=== PATIENT | male | born 1955 | race Caucasian/White ===

== ENCOUNTER → 2018-01-25 | Outpatient (CLI) | payer BC ==
[~2018-01-25] MED LIST: ACCUPRIL20 MG PO; IBU800 M1 PO; LIPITOR20 MG PO
== END | disposition home or self-care (01) ==
LOC: RESCLI 04:00
DX: Z13.1 Encounter for screening for diabetes mellitus (principal); Z13.220 Encounter for screening for lipoid disorders; I10 Essential (primary) hypertension; E78.5 Hyperlipidemia, unspecified; R53.83 Other fatigue; Z86.39 Personal history of other endocrine, nutritional and metabolic disease

== ENCOUNTER → 2018-11-11 | Outpatient (CLI) | payer BC | END | disposition home or self-care (01) | LOC: RESCLI 04:38 | DX: I10 Essential (primary) hypertension (principal); I25.10 Atherosclerotic heart disease of native coronary artery without angina pectoris; E78.5 Hyperlipidemia, unspecified; J01.90 Acute sinusitis, unspecified; F17.200 Nicotine dependence, unspecified, uncomplicated; Z79.899 Other long term (current) drug therapy ==

== ENCOUNTER → 2019-01-05 | Outpatient (CLI) | payer BC | END | disposition home or self-care (01) | LOC: RESCLI 13:41 | DX: Z00.00 Encounter for general adult medical examination without abnormal findings (principal); I10 Essential (primary) hypertension; E78.5 Hyperlipidemia, unspecified; I25.10 Atherosclerotic heart disease of native coronary artery without angina pectoris; R00.1 Bradycardia, unspecified; M54.2 Cervicalgia; E66.3 Overweight; R60.0 Localized edema; Z79.82 Long term (current) use of aspirin; Z79.899 Other long term (current) drug therapy; Z88.8 Allergy status to other drugs, medicaments and biological substances ==

== ENCOUNTER 2019-11-20 07:50 | Emergency (ER) | payer BC ==
[~2019-11-20] VITALS: Ht 187.9 cm; Wt 99.8 kg
[2019-11-20] MEDS ORDERED: KEFLEX500 M1 PO (08:25)
== END 2019-11-20 08:29 | disposition home or self-care (01) ==
LOC: ED 07:50
DX: L03.114 Cellulitis of left upper limb (principal); I10 Essential (primary) hypertension; Z79.899 Other long term (current) drug therapy; W45.8XXA Other foreign body or object entering through skin, initial encounter; Y93.89 Activity, other specified; Y92.89 Other specified places as the place of occurrence of the external cause; Y99.8 Other external cause status

== ENCOUNTER → 2020-06-23 | Outpatient (CLI) | payer BC ==
[~2020-06-23] MED LIST changes: +KEFLEX500 M1 PO
== END | disposition home or self-care (01) ==
LOC: LAB 19:54
DX: D64.9 Anemia, unspecified (principal)

== ENCOUNTER 2020-07-14 19:45 | Emergency (ER) | payer OTHER ==
[~2020-07-14] VITALS: Wt 97.5 kg
[2020-07-14] MEDS ORDERED: AMLODIPINE BESYL5 MG PO (20:11)
[2020-07-14] MEDS ORDERED: ATORVASTATIN CA20 M1 PO (20:11)
== END 2020-07-14 21:42 | disposition home or self-care (01) ==
LOC: ED 19:45
DX: S16.1XXA Strain of muscle, fascia and tendon at neck level, initial encounter (principal); S46.912A Strain of unspecified muscle, fascia and tendon at shoulder and upper arm level, left arm, initial encounter; I10 Essential (primary) hypertension; Z79.899 Other long term (current) drug therapy; V89.2XXA Person injured in unspecified motor-vehicle accident, traffic, initial encounter; Y93.89 Activity, other specified; Y92.89 Other specified places as the place of occurrence of the external cause; Y99.8 Other external cause status

== ENCOUNTER → 2020-07-26 | Outpatient (CLI) | payer OTHER, BC ==
[~2020-07-26] MED LIST changes: +AMLODIPINE BESYL5 MG PO; +ATORVASTATIN CA20 M1 PO
== END | disposition home or self-care (01) ==
LOC: RESCLI 09:44
PROVIDERS: ATTEND Family Medicine
DX: I10 Essential (primary) hypertension (principal); S46.912D Strain of unspecified muscle, fascia and tendon at shoulder and upper arm level, left arm, subsequent encounter; S16.1XXD Strain of muscle, fascia and tendon at neck level, subsequent encounter; N19 Unspecified kidney failure; M54.41 Lumbago with sciatica, right side; G89.29 Other chronic pain; E55.9 Vitamin D deficiency, unspecified; E78.5 Hyperlipidemia, unspecified; I25.10 Atherosclerotic heart disease of native coronary artery without angina pectoris; Z79.899 Other long term (current) drug therapy; Z95.828 Presence of other vascular implants and grafts; Z98.890 Other specified postprocedural states; X58.XXXD Exposure to other specified factors, subsequent encounter

== ENCOUNTER 2020-10-13 11:55 | Emergency (ER) | payer BC ==
[~2020-10-13] VITALS: Ht 187.9 cm; Wt 90.7 kg
[2020-10-13 12:58] LABS: BASO % 0.2 % (0.0-1.0); EOS % 0.2 % (1.0-4.0); HEMATOCRIT 47.5 % (42.0-52.0); LYMPH # 1.1 10*3/uL (1.3-4.4); LYMPH % 23.1 % (27.0-41.0); MEAN CELL VOLUME 85.3 fl (80.0-94.0); MEAN CORPUSCULAR HGB 28.9 pg (27.0-31.0); MEAN CORPUSCULAR HGB CONC 33.9 g/dl (33.0-37.0); MEAN PLATELET VOLUME 10.2 fl (9.6-12.3); MONO # 0.6 10*3/uL (0.1-1.0); MONO % 12.1 % (3.0-9.0); NEUT # 2.9 10*3/uL (2.3-7.9); NEUT % 64.2 % (47.0-73.0); PLATELET COUNT AUTOMATED 154 10*3/uL (130-400); RED BLOOD COUNT 5.57 10*6/uL (4.50-5.90); RED CELL DISTRI WIDTH 12.5 % (0-14.5); WHITE BLOOD COUNT 4.6 10*3/uL (4.8-10.8)
[2020-10-13 13:15] LABS: ALBUMIN 3.4 gm/dl (3.1-4.5); ALKALINE PHOSPHATASE 71 U/L (45-117); BUN 18 mg/dl (7-24); CHLORIDE 106 mmol/L (98-107); CREATININE 1.14 mg/dL (0.70-1.30); POTASSIUM 5.1 mmol/L (3.5-5.1); SGOT/AST 17 IU/L (3-35); SGPT/ALT 18 U/L (12-78); SODIUM 138 mmol/L (136-145); TOTAL PROTEIN 7.2 gm/dL (6.4-8.2)
[2020-10-13 13:20] LABS: TROPONIN I < 0.015 ng/ml (<0.045)
[2020-10-13] MEDS ORDERED: TESSALON PERLE100 MG PO ×2 (13:39)
[2020-10-14] MEDS ORDERED: ASPIRIN CHEWABL81 MG PO (17:34)
== END 2020-10-13 14:18 | disposition home or self-care (01) ==
LOC: ED 11:55
PROVIDERS: Emergency Medicine
DX: U07.1 COVID-19 (principal); J12.89 Other viral pneumonia; Z79.899 Other long term (current) drug therapy

== ENCOUNTER 2020-10-14 13:04 | Inpatient (IN) | payer BC ==
[~2020-10-14] VITALS: Ht 188 cm; Wt 95.3 kg
[~2020-10-14 13:04] MED LIST changes: +TESSALON PERLE100 MG PO
[2020-10-14 13:10] VITALS: BP 142/92
[2020-10-14 13:45] LABS: BASO % 0.4 % (0.0-1.0); EOS % 0.2 % (1.0-4.0); HEMATOCRIT 46.5 % (42.0-52.0); LYMPH # 1.1 10*3/uL (1.3-4.4); LYMPH % 22.3 % (27.0-41.0); MEAN CELL VOLUME 85.8 fl (80.0-94.0); MEAN CORPUSCULAR HGB CONC 33.8 g/dl (33.0-37.0); MEAN PLATELET VOLUME 10.4 fl (9.6-12.3); MONO # 0.5 10*3/uL (0.1-1.0); MONO % 10.7 % (3.0-9.0); NEUT # 3.1 10*3/uL (2.3-7.9); PLATELET COUNT AUTOMATED 146 10*3/uL (130-400); RED BLOOD COUNT 5.42 10*6/uL (4.50-5.90); RED CELL DISTRI WIDTH 12.5 % (0-14.5); WHITE BLOOD COUNT 4.8 10*3/uL (4.8-10.8)
[2020-10-14 14:01] LABS: ALBUMIN 3.2 gm/dl (3.1-4.5); ALKALINE PHOSPHATASE 70 U/L (45-117); BUN 18 mg/dl (7-24); CHLORIDE 104 mmol/L (98-107); CREATININE 1.19 mg/dL (0.70-1.30); LIPASE 165 U/L (73-393); SGOT/AST 14 IU/L (3-35); SGPT/ALT 16 U/L (12-78); SODIUM 135 mmol/L (136-145); TOTAL PROTEIN 7.1 gm/dL (6.4-8.2)
[2020-10-14 14:19] LABS: TROPONIN I < 0.015 ng/ml (<0.045)
[2020-10-14 14:29] LABS: ACT PARTIAL THROMBO TIME 38.4 SECONDS (20.0-32.1)
[2020-10-14 15:20] VITALS: BP 134/90
[2020-10-14 16:00] VITALS: BP 140/78
--- NOTE | 2020-10-14 16:07 | NUR ---
DR HOLLAND CONSULTED. T.O. FOR ABG THEN CALL BACK.
[2020-10-14 16:46] LABS: ABG BASE EXCESS 0.6 mmol/L (-2.0-2.0); ARTERIAL BLOOD GAS PH 7.444 (7.35-7.45)
[2020-10-14 16:50] VITALS: BP 140/78
--- NOTE | 2020-10-14 16:50 | NUR ---
A 65, admitted to , under the services of CARLTON Stein DO with a diagnosis of covid-19. Chief complaint is SHORTNESS OF BREATH, DYPSNEA WITH MINIMAL EXERTION, HYPOXIC. Patient arrived via bed from ER. Monitor applied. Initial assessment completed. Vital signs taken and recorded. CARLTON STEIN DO notified of admission to the unit. Orders received. See assessment for past medical history, medications and allergies. Patient and/or family oriented to unit. [facility] visitation policy reviewed. Clothing/patient valuable form completed. DARVIN MILLER
[2020-10-14] MEDS ORDERED: ASPIRIN CHEWABL81 MG PO (17:34)
--- NOTE | 2020-10-14 19:45 | NUR ---
Pt taken off BiPap and placed on 6L NC. ABG sent
[2020-10-14 19:57] LABS: ABG BASE EXCESS 0.9 mmol/L (-2.0-2.0); ARTERIAL BLOOD GAS PH 7.491 (7.35-7.45)
[2020-10-14 20:00] VITALS: BP 117/75
--- NOTE | 2020-10-14 20:45 | NUR ---
called with ABG results. No changes. Encourage pt to wear BiPap all night. ABG in the AM.
[2020-10-15] VITALS: BP 107/60
--- NOTE | 2020-10-15 00:25 | NUR ---
RESTING IN BED. RESP-EASY AND REGUALR. BIPAP IN USE. CALL LIGHT IN REACH. SEE SHIFT ASSESSMENT.
--- NOTE | 2020-10-15 04:00 | NUR ---
PT SLEEPING IN BED. RESP-EASY AND REGULAR. BIPAP IN USE. CALL LIGHT IN REACH.
[2020-10-15 06:47] LABS: HEMATOCRIT 45.5 % (42.0-52.0); LYMPH # 0.8 10*3/uL (1.3-4.4); LYMPH % 25.8 % (27.0-41.0); MEAN CELL VOLUME 86.3 fl (80.0-94.0); MEAN CORPUSCULAR HGB 28.8 pg (27.0-31.0); MEAN CORPUSCULAR HGB CONC 33.4 g/dl (33.0-37.0); MEAN PLATELET VOLUME 10.7 fl (9.6-12.3); MONO # 0.3 10*3/uL (0.1-1.0); NEUT # 2.1 10*3/uL (2.3-7.9); NEUT % 65.9 % (47.0-73.0); PLATELET COUNT AUTOMATED 165 10*3/uL (130-400); RED BLOOD COUNT 5.27 10*6/uL (4.50-5.90); RED CELL DISTRI WIDTH 12.3 % (0-14.5); WHITE BLOOD COUNT 3.1 10*3/uL (4.8-10.8)
[2020-10-15 07:26] LABS: BUN 17 mg/dl (7-24); CHLORIDE 106 mmol/L (98-107); SODIUM 138 mmol/L (136-145)
[2020-10-15 07:29] LABS: ACT PARTIAL THROMBO TIME 38.4 SECONDS (20.0-32.1)
[2020-10-15 07:42] LABS: ALBUMIN 2.9 gm/dl (3.1-4.5); ALKALINE PHOSPHATASE 67 U/L (45-117); CHOLESTEROL 127 mg/dL (<200); CREATININE 0.95 mg/dL (0.70-1.30); FREE T4 1.11 ng/dl (0.76-1.46); HDL CHOLESTEROL 39 mg/dl (40-60); LDH 175 U/L (87-241); LDL CHOLESTEROL 74 mg/dL (9-159); SGOT/AST 14 IU/L (3-35); SGPT/ALT 13 U/L (12-78); THYROID STIM HORMONE (HS) 0.262 uIU/ml (0.358-4.75); TOTAL PROTEIN 7.2 gm/dL (6.4-8.2); TRIGLYCERIDES 68 mg/dl (<150); VLDL CHOLESTEROL 14 mg/dL (6-40)
[2020-10-15 07:51] LABS: FERRITIN 291.4 ng/mL (22.0-322.0); VITAMIN D, 25-HYDROXY 26.9 ng/mL (30-100)
[2020-10-15 08:00] VITALS: BP 132/70
[2020-10-15 08:15] LABS: ABG BASE EXCESS 0.5 mmol/L (-2.0-2.0); ARTERIAL BLOOD GAS PH 7.477 (7.35-7.45)
--- NOTE | 2020-10-15 09:00 | NUR ---
Software Asset Management Analyst in to talk to patient. Patient states lives at home with . There are no steps in the home. Physician: resident [facility] Pharmacy: [facility] services: none Patient's level of ADLs: INDEPENDENT Patient has working utilities: all working DME: none Follow-up physician's appointment after d/c: will be made by hospitalist nurse director upon discharge Does patient want to access PORTAL?: no Discharge plan discussed with patient by phone, he states he lives at home with his , he is independent in adls and ambulation, works and drives, he states he will return home when discharged and at this time denies any home needs, patient is wearing 4l of oxygen and intermittent bipap. no home oxygen or bipap, case management will follow. SERENA DIAZ
--- NOTE | 2020-10-15 09:00 | NUR ---
PT AWAKE/ALERT/ORIENTED X3. LUNGS DIMINISHED T/O. PATIENT STATES THAT HE FEELS A LOT BETTER TODAY THAN YESTERDAY. STATES COUGH HAS IMPROVED, DENIES N/V/D. HE IS DOWN TO 4L NC, POX 100%. DAUGHTER PRESENT IN ROOM, CALL LIGHT IN REACH.
--- NOTE | 2020-10-15 09:16 | NUR ---
SPEECH PATHOLOGY Nursing screen complete. No indication for ST evaluation per nsg notes. This department available for evaluation if/when medically necessary. Reba Victoria M.A. [employer] MARKER
[2020-10-15 12:00] VITALS: BP 123/79
--- NOTE | 2020-10-15 13:00 | NUR ---
PATIENT PUT BACK ON BIPAP PER REQUEST AT THIS TIME. PATIENT IS TOLERATING IT WELL. CALL LIGHT WITHIN REACH.
[2020-10-15 16:00] VITALS: BP 125/75
[2020-10-15 20:00] VITALS: BP 129/79
--- NOTE | 2020-10-15 20:00 | NUR ---
PT RESTING IN BED. RESP-EASY AND REGULAR. OXYGEN IN USE. NO C/O AT THIS TIME. CALL LIGHT IN REACH.
--- NOTE | 2020-10-15 23:23 | NUR ---
Pt placed on BiPap 14/10 and FiO2 25%. Alarms on and auidble.
[2020-10-16] VITALS: BP 119/73
--- NOTE | 2020-10-16 00:30 | NUR ---
SLEEPING, AWAKENS EASILY. RESPIRATIONS EASY. LUNGS DIMINISHED, CLEAR. PULSE OX 100% ON BI-PAP. DENIES SOB. CALL LIGHT WITHIN REACH. NO VOICED COMPLAINTS
--- NOTE | 2020-10-16 04:57 | NUR ---
24 HR chart check completed.
--- NOTE | 2020-10-16 06:00 | NUR ---
SLEPT THROUGHOUT NIGHT WITH NO DISTRESS NOTED. RESPIRATIONS EASY. BI-PAP IN USE. CALL LIGHT WITHIN REACH. NO VOICED COMPLAINTS THIS SHIFT
[2020-10-16 07:07] LABS: BASO % 0.1 % (0.0-1.0); HEMATOCRIT 44.9 % (42.0-52.0); LYMPH % 10.3 % (27.0-41.0); MEAN CELL VOLUME 86.8 fl (80.0-94.0); MEAN CORPUSCULAR HGB CONC 33.4 g/dl (33.0-37.0); MEAN PLATELET VOLUME 10.9 fl (9.6-12.3); MONO # 0.6 10*3/uL (0.1-1.0); MONO % 6.3 % (3.0-9.0); PLATELET COUNT AUTOMATED 193 10*3/uL (130-400); RED BLOOD COUNT 5.17 10*6/uL (4.50-5.90); RED CELL DISTRI WIDTH 12.3 % (0-14.5); WHITE BLOOD COUNT 9.6 10*3/uL (4.8-10.8)
[2020-10-16 07:32] LABS: BUN 22 mg/dl (7-24); CHLORIDE 108 mmol/L (98-107); CREATININE 0.97 mg/dL (0.70-1.30); LDH 193 U/L (87-241); POTASSIUM 5.3 mmol/L (3.5-5.1); SGOT/AST 14 IU/L (3-35); SGPT/ALT 13 U/L (12-78); SODIUM 141 mmol/L (136-145); TOTAL PROTEIN 6.8 gm/dL (6.4-8.2)
[2020-10-16 07:35] LABS: ALKALINE PHOSPHATASE 63 U/L (45-117); CPK 42 U/L (39-308)
[2020-10-16 08:00] VITALS: BP 104/54
--- NOTE | 2020-10-16 09:00 | NUR ---
case management talks with patient, he would like to return home when discharged, patient remails on 4l of oxygen and intermittent bipap. no home oxygen, patient will need assessed for home oxygen prior to discharge . case management will follow
--- NOTE | 2020-10-16 11:00 | NUR ---
PATIENT STATES HE IS FEELING MUCH BETTER TODAY. DOWN TO 3L NC WHEN ON IT. ON BIPAP AT THIS TIME, TOLERATING IT WELL. NO NEEDS VOICED AT THIS TIME. CALL LIGHT WITHIN REACH.
[2020-10-16 12:00] VITALS: BP 110/60
[2020-10-16 16:00] VITALS: BP 122/64
[2020-10-16 20:00] VITALS: BP 124/55
--- NOTE | 2020-10-16 22:05 | NUR ---
PATIENT RESTING IN BED. VOICES NO COMPAINTS/NEEDS. 2L NC IN PLACE. VSS. NO SIGNS OF DISTRESS. BED IN LOWEST POSITION,CALL LIGHT WITHIN REACH. WILL CONTINUE TO MONITOR.
[2020-10-17] VITALS: BP 122/83
--- NOTE | 2020-10-17 05:00 | NUR ---
PATIENT SLEEPING, NO SIGNS OF DISTRESS. WILL CONTINUE TO MONITOR.
--- NOTE | 2020-10-17 05:36 | NUR ---
PATIENT FOUND OFF BIPAP. 2L IN USE
[2020-10-17 06:45] LABS: BASO % 0.2 % (0.0-1.0); LYMPH # 1.1 10*3/uL (1.3-4.4); LYMPH % 18.1 % (27.0-41.0); MEAN CELL VOLUME 86.8 fl (80.0-94.0); MEAN CORPUSCULAR HGB 28.3 pg (27.0-31.0); MEAN CORPUSCULAR HGB CONC 32.6 g/dl (33.0-37.0); MEAN PLATELET VOLUME 10.6 fl (9.6-12.3); MONO # 0.5 10*3/uL (0.1-1.0); MONO % 8.5 % (3.0-9.0); NEUT # 4.3 10*3/uL (2.3-7.9); PLATELET COUNT AUTOMATED 210 10*3/uL (130-400); RED BLOOD COUNT 4.84 10*6/uL (4.50-5.90); RED CELL DISTRI WIDTH 12.2 % (0-14.5); WHITE BLOOD COUNT 5.9 10*3/uL (4.8-10.8)
[2020-10-17 07:10] LABS: CHLORIDE 107 mmol/L (98-107); POTASSIUM 4.5 mmol/L (3.5-5.1); SODIUM 140 mmol/L (136-145)
[2020-10-17 07:18] LABS: ALBUMIN 2.8 gm/dl (3.1-4.5); ALKALINE PHOSPHATASE 65 U/L (45-117); BUN 18 mg/dl (7-24); CPK 41 U/L (39-308); CREATININE 0.91 mg/dL (0.70-1.30); LDH 213 U/L (87-241); SGOT/AST 12 IU/L (3-35); SGPT/ALT 13 U/L (12-78); TOTAL PROTEIN 6.3 gm/dL (6.4-8.2)
[2020-10-17 08:00] VITALS: BP 117/67
--- NOTE | 2020-10-17 11:58 | NUR ---
case management talked with patient via phone, discussed with him home health services and explained what services they provide. he declined any home health, stated his daughter is a nurse and will visit him daily. also discussed with him home oxygen and he stated he received home oxygen from [facility] with portable tanks prior to coming into the hospital. case management will follow for any other home needs
[2020-10-17 12:00] VITALS: BP 118/62
[2020-10-17 16:00] VITALS: BP 111/67
--- NOTE | 2020-10-17 16:20 | NUR ---
PATIENT RESTING COMFORTABLE ON BIPAP @ 25% FiO2. DENIES ANY NEEDS AT THIS TIME. CALL LIGHT IS WITHIN REACH.
[2020-10-17 20:00] VITALS: BP 132/79
--- NOTE | 2020-10-17 20:30 | NUR ---
Pt placed on BiPap /10. FiO2 25%. Alarms on and auidible.
--- NOTE | 2020-10-17 21:28 | NUR ---
PATIENT RESTING IN BED. NO SIGNS OF DISTRESS. REQUESTING A SLEEPING PILL AND TESSALON PERLE. MEDICATED WITH BOTH AT THIS TIME. VOICES NO OTHER COMPLAINTS/NEEDS. RESPIRATIONS EASY, NON LABORED. VSS. PATIENT WEARING BIPAP. 25%. BED IN LOWEST POSITION,CALL LIGHT WITHIN REACH. WILL CONTINUE TO MONITOR.
[2020-10-18] VITALS: BP 114/68
--- NOTE | 2020-10-18 04:55 | NUR ---
PATIENT SLEEPING. NO SIGNS OF DISTRESS. BIPAP ON. CALL LIGHT WITHIN REACH. WILL CONTINUE TO MONITOR.
[2020-10-18 06:43] LABS: BASO % 0.1 % (0.0-1.0); HEMATOCRIT 41.8 % (42.0-52.0); LYMPH # 1.3 10*3/uL (1.3-4.4); LYMPH % 19.6 % (27.0-41.0); MEAN CELL VOLUME 88.2 fl (80.0-94.0); MEAN CORPUSCULAR HGB 28.9 pg (27.0-31.0); MEAN CORPUSCULAR HGB CONC 32.8 g/dl (33.0-37.0); MEAN PLATELET VOLUME 10.5 fl (9.6-12.3); MONO # 0.7 10*3/uL (0.1-1.0); MONO % 10.4 % (3.0-9.0); NEUT # 4.6 10*3/uL (2.3-7.9); NEUT % 69.2 % (47.0-73.0); PLATELET COUNT AUTOMATED 238 10*3/uL (130-400); RED BLOOD COUNT 4.74 10*6/uL (4.50-5.90); RED CELL DISTRI WIDTH 12.2 % (0-14.5); WHITE BLOOD COUNT 6.7 10*3/uL (4.8-10.8)
[2020-10-18 07:00] LABS: ALBUMIN 2.8 gm/dl (3.1-4.5); BUN 22 mg/dl (7-24); CHLORIDE 107 mmol/L (98-107); LDH 137 U/L (87-241); POTASSIUM 4.4 mmol/L (3.5-5.1); SGOT/AST 16 IU/L (3-35); SGPT/ALT 21 U/L (12-78); SODIUM 142 mmol/L (136-145); TOTAL PROTEIN 5.7 gm/dL (6.4-8.2)
[2020-10-18 07:01] LABS: ALKALINE PHOSPHATASE 62 U/L (45-117)
[2020-10-18 07:13] LABS: ABG BASE EXCESS 1.3 mmol/L (-2.0-2.0); ARTERIAL BLOOD GAS PH 7.431 (7.35-7.45)
[2020-10-18 07:13] LABS: CPK 27 U/L (39-308)
[2020-10-18 08:00] VITALS: BP 124/75
[2020-10-18] MEDS ORDERED: DECADRON6 M1 PO (11:45)
[2020-10-18] MEDS ORDERED: VITAMIN D350 MCG PO (11:46)
--- NOTE | 2020-10-18 12:17 | NUR ---
Discharge instructions reviewed with patient/family. Patient receptive and verbalizes understanding. Follow-up care arranged. Written instructions given to patient/family. ALDO THOMAS
== END 2020-10-18 12:17 | disposition home or self-care (01) | DRG 177 ==
LOC: ED 13:04 → EDHOLD 14:52 → 4E 14:52 → EDHOLD 14:53 → 4E 15:21
PROVIDERS: Emergency Medicine; Hospitalist; Internal Medicine Critical Care Medicine; ADMIT Family Medicine; ATTEND Family Medicine
PROC: 5A09357 Assistance with Respiratory Ventilation, Less than 24 Consecutive Hours, Continuous Positive Airway Pressure (ICD-10-PCS; principal; 2020-10-14)
PROC: 5A09357 Assistance with Respiratory Ventilation, Less than 24 Consecutive Hours, Continuous Positive Airway Pressure (ICD-10-PCS; 2020-10-15)
PROC: 5A09357 Assistance with Respiratory Ventilation, Less than 24 Consecutive Hours, Continuous Positive Airway Pressure (ICD-10-PCS; 2020-10-16)
PROC: 5A09357 Assistance with Respiratory Ventilation, Less than 24 Consecutive Hours, Continuous Positive Airway Pressure (ICD-10-PCS; 2020-10-17)
PROC: 5A09357 Assistance with Respiratory Ventilation, Less than 24 Consecutive Hours, Continuous Positive Airway Pressure (ICD-10-PCS; 2020-10-18)
DX: U07.1 COVID-19 (principal); J12.89 Other viral pneumonia; J96.01 Acute respiratory failure with hypoxia; E87.1 Hypo-osmolality and hyponatremia; D68.59 Other primary thrombophilia; R00.1 Bradycardia, unspecified; I25.10 Atherosclerotic heart disease of native coronary artery without angina pectoris; I10 Essential (primary) hypertension; R79.89 Other specified abnormal findings of blood chemistry; R79.82 Elevated C-reactive protein (CRP); E78.5 Hyperlipidemia, unspecified; Z96.641 Presence of right artificial hip joint; Z82.49 Family history of ischemic heart disease and other diseases of the circulatory system; Z79.899 Other long term (current) drug therapy

== ENCOUNTER → 2020-11-08 | Outpatient (CLI) | payer BC ==
[~2020-11-08] MED LIST changes: +ASPIRIN CHEWABL81 MG PO; +DECADRON6 M1 PO; +VITAMIN D350 MCG PO
== END | disposition home or self-care (01) ==
LOC: RESCLI 00:21
PROVIDERS: ATTEND Family Medicine
DX: M25.512 Pain in left shoulder (principal); I10 Essential (primary) hypertension; E78.5 Hyperlipidemia, unspecified; I25.10 Atherosclerotic heart disease of native coronary artery without angina pectoris; S46.912D Strain of unspecified muscle, fascia and tendon at shoulder and upper arm level, left arm, subsequent encounter; E07.81 Sick-euthyroid syndrome; E55.9 Vitamin D deficiency, unspecified; E87.6 Hypokalemia; Z23 Encounter for immunization; Z79.82 Long term (current) use of aspirin; X58.XXXD Exposure to other specified factors, subsequent encounter

== ENCOUNTER → 2020-12-02 | Outpatient (CLI) | payer BC | END | disposition home or self-care (01) | LOC: MRI 01:31 | PROVIDERS: ATTEND Internal Medicine Nephrology | DX: S46.912A Strain of unspecified muscle, fascia and tendon at shoulder and upper arm level, left arm, initial encounter (principal); M77.8 Other enthesopathies, not elsewhere classified; M19.012 Primary osteoarthritis, left shoulder; M75.52 Bursitis of left shoulder; M25.812 Other specified joint disorders, left shoulder; V89.2XXA Person injured in unspecified motor-vehicle accident, traffic, initial encounter; Y93.89 Activity, other specified; Y92.89 Other specified places as the place of occurrence of the external cause; Y99.8 Other external cause status ==

== ENCOUNTER → 2021-01-30 | Outpatient (CLI) | payer BC | END | disposition home or self-care (01) | LOC: RAD 11:57 | PROVIDERS: ATTEND Internal Medicine | DX: R06.00 Dyspnea, unspecified (principal); Z86.16 Personal history of COVID-19 ==

== ENCOUNTER → 2023-01-14 | Outpatient (CLI) | payer BC ==
[~2023-01-14] MED LIST changes: +AMITRIPTYLINE10 MG PO; +LISINOPRIL20 MG PO; +PROTONIX40 MG PO
== END | disposition home or self-care (01) ==
LOC: CARD 00:55
PROVIDERS: ATTEND Internal Medicine Cardiovascular Disease
DX: I49.3 Ventricular premature depolarization (principal); I49.1 Atrial premature depolarization

== ENCOUNTER → 2023-05-07 | Outpatient (CLI) | payer BC | END | disposition home or self-care (01) | LOC: US 13:30 | PROVIDERS: ATTEND Physician Assistant | DX: I65.23 Occlusion and stenosis of bilateral carotid arteries (principal); I10 Essential (primary) hypertension ==

== ENCOUNTER → 2023-10-28 | Outpatient (CLI) | payer BC | END | disposition home or self-care (01) | LOC: RAD 03:40 | PROVIDERS: ATTEND Nurse Practitioner Family | DX: R09.89 Other specified symptoms and signs involving the circulatory and respiratory systems (principal); J02.9 Acute pharyngitis, unspecified ==

== ENCOUNTER → 2023-12-14 | Outpatient (CLI) | payer BC | END | disposition home or self-care (01) | LOC: US 01:22 | PROVIDERS: ATTEND Nurse Practitioner Family | DX: K80.20 Calculus of gallbladder without cholecystitis without obstruction (principal); R10.10 Upper abdominal pain, unspecified; R74.8 Abnormal levels of other serum enzymes ==

== ENCOUNTER → 2024-12-04 | Outpatient (CLI) | payer BC | END | disposition home or self-care (01) | LOC: ORTHO 02:48 | PROVIDERS: ATTEND Orthopaedic Surgery | DX: M79.89 Other specified soft tissue disorders (principal); M25.571 Pain in right ankle and joints of right foot ==

== ENCOUNTER 2024-12-22 12:39 | Emergency (ER) | payer OTHER, BC ==
[~2024-12-22] VITALS: Ht 187.9 cm; Wt 104.3 kg
[2024-12-22] MEDS ORDERED: IBUPROFEN 800 MG TAB PO ONE (13:00)
[2024-12-22] MEDS ORDERED: PERCOCET 5-3251 EACH PO (13:29)
== END 2024-12-22 13:45 | disposition home or self-care (01) ==
LOC: ED 12:39
DX: S72.001A Fracture of unspecified part of neck of right femur, initial encounter for closed fracture (principal); Z79.899 Other long term (current) drug therapy; Z96.641 Presence of right artificial hip joint; W00.0XXA Fall on same level due to ice and snow, initial encounter; Y93.89 Activity, other specified; Y92.89 Other specified places as the place of occurrence of the external cause; Y99.0 Civilian activity done for income or pay

== ENCOUNTER → 2024-12-29 | Outpatient (CLI) | payer BC ==
[~2024-12-29] MED LIST changes: +PERCOCET 5-3251 EACH PO
== END | disposition home or self-care (01) ==
LOC: ORTHO 00:19
PROVIDERS: ATTEND Orthopaedic Surgery
DX: S72.114D Nondisplaced fracture of greater trochanter of right femur, subsequent encounter for closed fracture with routine healing (principal); M97.01XD Periprosthetic fracture around internal prosthetic right hip joint, subsequent encounter; X58.XXXD Exposure to other specified factors, subsequent encounter

== ENCOUNTER → 2025-01-12 | Outpatient (CLI) | payer BC | END | disposition home or self-care (01) | LOC: ORTHO 01:24 | PROVIDERS: ATTEND Orthopaedic Surgery | DX: S72.114D Nondisplaced fracture of greater trochanter of right femur, subsequent encounter for closed fracture with routine healing (principal); M97.01XD Periprosthetic fracture around internal prosthetic right hip joint, subsequent encounter; Z96.641 Presence of right artificial hip joint; X58.XXXD Exposure to other specified factors, subsequent encounter ==

== ENCOUNTER → 2025-01-31 | Outpatient (CLI) | payer BC | END | disposition home or self-care (01) | LOC: ORTHO 03:07 | PROVIDERS: ATTEND Orthopaedic Surgery | DX: S72.114D Nondisplaced fracture of greater trochanter of right femur, subsequent encounter for closed fracture with routine healing (principal); M97.01XD Periprosthetic fracture around internal prosthetic right hip joint, subsequent encounter; Z96.641 Presence of right artificial hip joint; X58.XXXD Exposure to other specified factors, subsequent encounter ==

== ENCOUNTER → 2025-02-05 | Outpatient (CLI) | payer BC | END | disposition home or self-care (01) | LOC: ORTHO 02:50 | PROVIDERS: ATTEND Orthopaedic Surgery | DX: M25.862 Other specified joint disorders, left knee (principal); M25.562 Pain in left knee ==

== ENCOUNTER → 2025-03-14 | Outpatient (CLI) | payer BC | END | disposition home or self-care (01) | LOC: ORTHO 01:13 | PROVIDERS: ATTEND Orthopaedic Surgery | DX: S72.114D Nondisplaced fracture of greater trochanter of right femur, subsequent encounter for closed fracture with routine healing (principal); M97.01XD Periprosthetic fracture around internal prosthetic right hip joint, subsequent encounter; X58.XXXD Exposure to other specified factors, subsequent encounter ==

== ENCOUNTER → 2025-04-04 | Outpatient (CLI) | payer BC ==
[~2025-04-04] MED LIST changes: +Regadenoson 0.4 MG/5 ML SYR IV ONE; +Technetium Tc 99M Tetrofosmi 0.23 MG KIT IJ SCH
[2025-04-04 07:14] LABS: BASO % 0.8 % (0.0-1.0); EOS # 0.1 10*3/uL (0.0-0.4); EOS % 2.4 % (1.0-4.0); HEMATOCRIT 43.8 % (42.0-52.0); MEAN CORPUSCULAR HGB 29.7 pg (27.0-31.0); MEAN CORPUSCULAR HGB CONC 33.8 g/dl (33.0-37.0); MEAN PLATELET VOLUME 9.7 fl (9.6-12.3); MONO # 0.5 10*3/uL (0.1-1.0); MONO % 10.4 % (3.0-9.0); NEUT # 2.1 10*3/uL (2.3-7.9); NEUT % 41.7 % (47.0-73.0); PLATELET COUNT AUTOMATED 188 10*3/uL (130-400); RED BLOOD COUNT 4.98 10*6/uL (4.50-5.90); RED CELL DISTRI WIDTH 12.8 % (0-14.5)
[2025-04-04 08:14] LABS: VITAMIN D, 25-HYDROXY 21.8 ng/mL (30-100)
[2025-04-04 08:15] LABS: ALKALINE PHOSPHATASE 54 U/L (46-116); BUN 14 mg/dl (9-23); CHLORIDE 108 mmol/L (98-107); CHOLESTEROL 172 mg/dL (<200); LDL CHOLESTEROL 108 mg/dL (9-159); POTASSIUM 3.9 mmol/L (3.4-5.1); SGPT/ALT 14 U/L (5-49); TOTAL PROTEIN 6.4 gm/dL (6.0-8.0); TRIGLYCERIDES 99 mg/dl (<150)
[2025-04-04 09:23] LABS: BILIRUBIN Negative (Negative); BLOOD Negative (Negative); CLARITY Clear (Clear); COLOR Yellow (Yellow); GLUCOSE Negative (Negative); KETONE Negative (Negative); LEUKO ESTERASE Negative (Negative); NITRITE Negative (Negative); PH 6.5 (4.5-8.0); UROBILINOGEN 0.2 E.U./dl (0.0-1.0)
[2025-04-04 10:46] LABS: RBC 0-2 rbc/hpf (0-2); WBC 0-2 wbc/hpf (0-5)
== END | disposition home or self-care (01) ==
LOC: CARD 00:46 → LAB 00:46 → CARD 07:00
PROVIDERS: Nurse Practitioner Family; ATTEND Internal Medicine Cardiovascular Disease
DX: R42 Dizziness and giddiness (principal); I10 Essential (primary) hypertension; E78.2 Mixed hyperlipidemia; I25.10 Atherosclerotic heart disease of native coronary artery without angina pectoris; Z00.01 Encounter for general adult medical examination with abnormal findings; K21.9 Gastro-esophageal reflux disease without esophagitis; Z79.899 Other long term (current) drug therapy; E55.9 Vitamin D deficiency, unspecified; Z13.1 Encounter for screening for diabetes mellitus

== ENCOUNTER → 2025-04-23 | Outpatient (CLI) | payer BC ==
[~2025-04-23] MED LIST changes: -Regadenoson 0.4 MG/5 ML SYR IV ONE; -Technetium Tc 99M Tetrofosmi 0.23 MG KIT IJ SCH
== END | disposition home or self-care (01) ==
LOC: RAD 04-13 14:00
PROVIDERS: ATTEND Nurse Practitioner Family
DX: M81.0 Age-related osteoporosis without current pathological fracture (principal); Z13.820 Encounter for screening for osteoporosis; Z79.899 Other long term (current) drug therapy; Z87.81 Personal history of (healed) traumatic fracture

== ENCOUNTER → 2025-08-10 | Outpatient (CLI) | payer BC | END | disposition home or self-care (01) | LOC: CT 08-02 16:00 | PROVIDERS: ATTEND Otolaryngology | DX: J32.2 Chronic ethmoidal sinusitis (principal); J34.89 Other specified disorders of nose and nasal sinuses ==

== ENCOUNTER → 2025-09-21 | Outpatient (CLI) | payer BC | END | disposition home or self-care (01) | LOC: RAD 11:38 | PROVIDERS: ATTEND Nurse Practitioner Family | DX: R07.89 Other chest pain (principal) ==